=== PATIENT | male | born 1935 | race Caucasian/White ===

== ENCOUNTER → 2020-07-02 | Outpatient (CLI) | payer MEDICARE, OTHER ==
[~2020-07-02] MED LIST: ALBUTEROL SULFAT3 M3 IH; BROVANA15 MCG/2 M IH; BUDESONIDE0.5 MG/2 M IH; CALCIUM 1,0001 EACH PO; CARVEDILOL25 MG PO; CEFDINIR300 MG PO; COD LIVER OIL PO; ELIQUIS5 MG PO; FLUTICASON0.05 MG/AC NS; FUROSEMIDE40 MG PO; IPRATROPIUM BROM3 M1 IH; K-TAB20 MEQ PO; LASIX40 M1 PO; LASIX80 M1 PO; LIPITOR 40MG TA40 MG PO; LOSARTAN POTASS50 M1 PO; LOW DOSE ASPIRI81 M1 PO; NITROGLYCERIN0.4 M1 SL; ONE-DAILY MULT1 EAC1 PO; TOPROL XL 50MG50 MG PO; VITAMIN C PUR1000 MG PO; VITAMIN D3250 MCG PO; ZYRTEC ALLERGY10 MG PO
== END ==
LOC: RAD 16:15
DX: I48.91 Unspecified atrial fibrillation (principal); I08.1 Rheumatic disorders of both mitral and tricuspid valves

== ENCOUNTER → 2020-07-10 | Outpatient (CLI) | payer MEDICARE, OTHER ==
[2020-07-10 14:56] LABS: EOS # 0.2 (0.04-0.40); EOS % 1.5 % (0.0-4.0); HEMATOCRIT 46.5 % (42.0-52.0); HEMOGLOBIN 15.1 g/dL (13.5-18.0); LYMPH# 1.9 (1.50-4.00); MEAN CELL VOLUME 87 fl (78-100); MEAN CORPUSCULAR HEMOGLOBIN 28 pg (27-31); MEAN CORPUSCULAR HGB CONC 33 g/dL (33-37); MEAN PLATELET VOLUME 9.9 fl (7.4-10.4); MONO # 0.8 (0.20-0.80); NEU # 8.5 (1.40-6.50); PLATELET COUNT 243 K/mm3 (130-400); RED BLOOD COUNT 5.33 M/mm3 (4.20-5.60); RED CELL DISTRIBUTION WIDTH 14.1 % (11.5-14.5); WHITE BLOOD COUNT 11.5 K/mm3 (4.8-10.8)
[2020-07-10 15:07] LABS: POTASSIUM 4.2 mmol/L (3.5-5.1)
[2020-07-10 15:08] LABS: CALCIUM 8.9 mg/dL (8.3-10.5)
[2020-07-10 15:20] LABS: TROPONIN-I 0.04 ng/mL (<0.030)
== END ==
LOC: LAB 14:39
PROVIDERS: Family Medicine
DX: R06.02 Shortness of breath (principal)

== ENCOUNTER 2020-07-27 20:55 | Emergency (ER) | payer MEDICARE, OTHER ==
[2020-07-27 22:28] LABS: EOS # 0.2 (0.04-0.40); EOS % 2.8 % (0.0-4.0); HEMATOCRIT 46.6 % (42.0-52.0); HEMOGLOBIN 15.2 g/dL (13.5-18.0); LYMPH# 1.8 (1.50-4.00); MEAN CELL VOLUME 85 fl (78-100); MEAN CORPUSCULAR HEMOGLOBIN 28 pg (27-31); MEAN CORPUSCULAR HGB CONC 33 g/dL (33-37); MEAN PLATELET VOLUME 9.8 fl (7.4-10.4); MONO # 0.6 (0.20-0.80); NEU # 4.8 (1.40-6.50); PLATELET COUNT 283 K/mm3 (130-400); RED BLOOD COUNT 5.47 M/mm3 (4.20-5.60); RED CELL DISTRIBUTION WIDTH 14.2 % (11.5-14.5); WHITE BLOOD COUNT 7.5 K/mm3 (4.8-10.8)
[2020-07-27] MEDS ORDERED: ALBUTEROL SULFAT3 M3 IH (22:32)
[2020-07-27] MEDS ORDERED: ELIQUIS5 MG PO (22:32)
[2020-07-27] MEDS ORDERED: VITAMIN C PUR1000 MG PO (22:33)
[2020-07-27] MEDS ORDERED: BUDESONIDE0.5 MG/2 M IH (22:33)
[2020-07-27] MEDS ORDERED: BROVANA15 MCG/2 M IH (22:33)
[2020-07-27] MEDS ORDERED: CALCIUM 1,0001 EACH PO (22:34)
[2020-07-27] MEDS ORDERED: CARVEDILOL25 MG PO (22:35)
[2020-07-27] MEDS ORDERED: ZYRTEC ALLERGY10 MG PO (22:35)
[2020-07-27] MEDS ORDERED: VITAMIN D3250 MCG PO (22:35)
[2020-07-27] MEDS ORDERED: COD LIVER OIL PO (22:36)
[2020-07-27] MEDS ORDERED: FLUTICASON0.05 MG/AC NS (22:36)
[2020-07-27] MEDS ORDERED: ONE-DAILY MULT1 EAC1 PO (22:37)
[2020-07-27] MEDS ORDERED: LOSARTAN POTASS50 M1 PO (22:37)
[2020-07-27] MEDS ORDERED: NITROGLYCERIN0.4 M1 SL (22:37)
[2020-07-27] MEDS ORDERED: FUROSEMIDE40 MG PO (22:37)
[2020-07-27] MEDS ORDERED: CEFDINIR300 MG PO (22:38)
[2020-07-27 22:40] LABS: ALBUMIN 3.5 g/dL (3.4-4.8)
[2020-07-27 22:41] LABS: CALCIUM 8.9 mg/dL (8.3-10.5)
[2020-07-27 22:42] LABS: TOTAL PROTEIN 6.3 g/dL (6.2-8.1)
[2020-07-27 22:44] LABS: TOTAL BILIRUBIN 1.1 mg/dL (0.2-1.2)
[2020-07-27 22:52] LABS: PARTIAL THROMBOPLASTIN TIME 28.9 SECONDS (21.0-32.0); PROTHROMBIN TIME 12.7 SECONDS (9.0-12.0)
[2020-07-28 00:38] VITALS: BP 115/78
[2020-07-31] MEDS ORDERED: TOPROL XL 50MG50 MG PO (10:22)
[2020-07-31] MEDS ORDERED: IPRATROPIUM BROM3 M1 IH (10:23)
[2020-07-31] MEDS ORDERED: LIPITOR 40MG TA40 MG PO (10:24)
== END 2020-07-28 00:38 | disposition short-term general hospital (02) ==
LOC: ED 20:55
PROVIDERS: Nurse Practitioner
DX: I48.91 Unspecified atrial fibrillation (principal); I50.9 Heart failure, unspecified; J44.9 Chronic obstructive pulmonary disease, unspecified; Z87.891 Personal history of nicotine dependence; Z79.01 Long term (current) use of anticoagulants; Z79.51 Long term (current) use of inhaled steroids

== ENCOUNTER 2020-07-31 15:09 | Inpatient (IN) | payer MEDICARE, OTHER ==
[~2020-07-31 15:09] MED LIST changes: -K-TAB20 MEQ PO; -LASIX40 M1 PO; -LASIX80 M1 PO; -LOW DOSE ASPIRI81 M1 PO
[2020-07-31] MEDS ORDERED: LASIX40 M1 PO (15:45)
[2020-07-31 15:49] LABS: EOS # 0.2 (0.04-0.40); EOS % 2.1 % (0.0-4.0); HEMATOCRIT 45.4 % (42.0-52.0); HEMOGLOBIN 14.8 g/dL (13.5-18.0); LYMPH# 1.6 (1.50-4.00); MEAN CELL VOLUME 87 fl (78-100); MEAN CORPUSCULAR HEMOGLOBIN 28 pg (27-31); MEAN CORPUSCULAR HGB CONC 33 g/dL (33-37); MEAN PLATELET VOLUME 9.8 fl (7.4-10.4); MONO # 0.7 (0.20-0.80); NEU # 4.6 (1.40-6.50); PLATELET COUNT 270 K/mm3 (130-400); RED BLOOD COUNT 5.23 M/mm3 (4.20-5.60); RED CELL DISTRIBUTION WIDTH 14.2 % (11.5-14.5); WHITE BLOOD COUNT 7.1 K/mm3 (4.8-10.8)
[2020-07-31 16:08] LABS: ALBUMIN 3.3 g/dL (3.4-4.8); POTASSIUM 3.6 mmol/L (3.5-5.1)
[2020-07-31 16:09] LABS: CALCIUM 8.8 mg/dL (8.3-10.5)
[2020-07-31 16:10] LABS: TOTAL PROTEIN 6.3 g/dL (6.2-8.1)
[2020-07-31 16:12] LABS: TOTAL BILIRUBIN 1.3 mg/dL (0.2-1.2)
[2020-07-31 17:18] VITALS: BP 90/61
[2020-07-31 18:04] VITALS: BP 97/64
[2020-07-31 18:31] LABS: URINE APPEARANCE CLEAR; URINE BILIRUBIN NEGATIVE (NEGATIVE); URINE BLOOD NEGATIVE (NEGATIVE); URINE COLOR YELLOW; URINE GLUCOSE NEGATIVE (NEGATIVE); URINE KETONE NEGATIVE (NEGATIVE); URINE LEUKOCYTE ESTERASE 1+ (NEGATIVE); URINE NITRATE NEGATIVE (NEGATIVE); URINE PROTEIN(semi-quant) TRACE mg/dL (NEGATIVE); URINE UROBILINOGEN NORMAL (NORMAL)
[2020-07-31 18:32] LABS: URINE MUCUS PRESENT (NOT PRESENT)
[2020-08-01 05:49] VITALS: BP 100/74
[2020-08-01 17:27] VITALS: BP 95/61
[2020-08-02 06:13] VITALS: BP 102/78
[2020-08-02 17:19] VITALS: BP 87/57
[2020-08-03 05:47] VITALS: BP 100/69
[2020-08-03 12:00] VITALS: BP 83/61
[2020-08-03 12:05] VITALS: BP 84/58
[2020-08-03 17:06] VITALS: BP 95/65
[2020-08-04 05:25] VITALS: BP 80/55
[2020-08-04 08:15] VITALS: BP 94/71
[2020-08-04 09:20] LABS: EOS # 0.1 (0.04-0.40); EOS % 1.5 % (0.0-4.0); HEMATOCRIT 47.2 % (42.0-52.0); HEMOGLOBIN 15.2 g/dL (13.5-18.0); LYMPH# 2.2 (1.50-4.00); MEAN CELL VOLUME 87 fl (78-100); MEAN CORPUSCULAR HEMOGLOBIN 28 pg (27-31); MEAN CORPUSCULAR HGB CONC 32 g/dL (33-37); MEAN PLATELET VOLUME 10.4 fl (7.4-10.4); MONO # 0.6 (0.20-0.80); NEU # 5.2 (1.40-6.50); PLATELET COUNT 257 K/mm3 (130-400); RED BLOOD COUNT 5.43 M/mm3 (4.20-5.60); RED CELL DISTRIBUTION WIDTH 14.2 % (11.5-14.5); WHITE BLOOD COUNT 8.1 K/mm3 (4.8-10.8)
[2020-08-04 09:28] LABS: POTASSIUM 4.1 mmol/L (3.5-5.1)
[2020-08-04 09:29] LABS: CALCIUM 9.3 mg/dL (8.3-10.5)
[2020-08-04 10:43] LABS: TROPONIN-I 0.04 ng/mL (<0.030)
[2020-08-04 12:47] VITALS: BP 95/66
[2020-08-04 15:42] VITALS: BP 89/62
[2020-08-04 17:37] VITALS: BP 92/67
[2020-08-04 20:14] VITALS: BP 98/66
[2020-08-05 05:58] VITALS: BP 86/63
[2020-08-05 08:32] VITALS: BP 97/65
[2020-08-05 12:10] VITALS: BP 119/83
[2020-08-05 17:03] VITALS: BP 93/66
[2020-08-06 05:52] VITALS: BP 116/80
[2020-08-06 12:15] VITALS: BP 101/72
[2020-08-06 17:38] VITALS: BP 95/69
[2020-08-07 05:56] VITALS: BP 102/68
[2020-08-07 17:10] VITALS: BP 96/69
[2020-08-08 05:51] VITALS: BP 107/72
[2020-08-08 10:02] VITALS: BP 114/75
[2020-08-08 17:12] VITALS: BP 104/69
[2020-08-09 05:50] VITALS: BP 92/63
[2020-08-09 09:27] VITALS: BP 99/75
[2020-08-09 16:32] VITALS: BP 11/70; BP 111/70
[2020-08-10 05:37] VITALS: BP 116/74
[2020-08-10 17:01] VITALS: BP 87/66
[2020-08-11 05:55] VITALS: BP 88/57
[2020-08-11 07:45] LABS: POTASSIUM 3.4 mmol/L (3.5-5.1)
[2020-08-11 07:46] LABS: CALCIUM 8.8 mg/dL (8.3-10.5)
[2020-08-11 08:30] VITALS: BP 105/69
[2020-08-11 17:20] VITALS: BP 94/66
[2020-08-12 06:09] VITALS: BP 107/74
[2020-08-12 17:51] VITALS: BP 102/71
[2020-08-12 21:09] VITALS: BP 107/78
[2020-08-12 21:42] VITALS: BP 102/65
[2020-08-13 05:44] VITALS: BP 102/67
[2020-08-13 10:29] VITALS: BP 104/64
[2020-08-13 17:20] VITALS: BP 92/68
[2020-08-14 02:00] VITALS: BP 101/65
[2020-08-14 03:55] LABS: EOS # 0.1 (0.04-0.40); EOS % 1.7 % (0.0-4.0); HEMATOCRIT 41.4 % (42.0-52.0); HEMOGLOBIN 13.3 g/dL (13.5-18.0); LYMPH# 1.2 (1.50-4.00); MEAN CELL VOLUME 89 fl (78-100); MEAN CORPUSCULAR HEMOGLOBIN 29 pg (27-31); MEAN CORPUSCULAR HGB CONC 32 g/dL (33-37); MEAN PLATELET VOLUME 10.6 fl (7.4-10.4); MONO # 0.7 (0.20-0.80); NEU # 5.1 (1.40-6.50); PLATELET COUNT 219 K/mm3 (130-400); RED BLOOD COUNT 4.67 M/mm3 (4.20-5.60); RED CELL DISTRIBUTION WIDTH 14.2 % (11.5-14.5); WHITE BLOOD COUNT 7.1 K/mm3 (4.8-10.8)
[2020-08-14 03:56] LABS: POTASSIUM 3.6 mmol/L (3.5-5.1); SODIUM 135 mmol/L (136-145)
[2020-08-14 03:57] LABS: CALCIUM 9.3 mg/dL (8.3-10.5)
[2020-08-14 03:58] LABS: GLUCOSE 112 mg/dL (75-110)
[2020-08-14 03:59] LABS: CARBON DIOXIDE 30 mmol/L (23-31)
[2020-08-14 04:25] LABS: TROPONIN-I < 0.03 ng/mL (<0.030)
== END 2020-08-14 12:03 | disposition short-term general hospital (02) | DRG 948 ==
LOC: MED/SURG 15:09
PROVIDERS: Nurse Practitioner Family; ADMIT Nurse Practitioner Primary Care
DX: R53.81 Other malaise (principal); I42.9 Cardiomyopathy, unspecified; J44.9 Chronic obstructive pulmonary disease, unspecified; I48.91 Unspecified atrial fibrillation; I95.9 Hypotension, unspecified; I11.0 Hypertensive heart disease with heart failure; I25.10 Atherosclerotic heart disease of native coronary artery without angina pectoris; E87.6 Hypokalemia; R63.0 Anorexia; E78.5 Hyperlipidemia, unspecified; Z68.27 Body mass index [BMI] 27.0-27.9, adult; Z79.01 Long term (current) use of anticoagulants; Z87.891 Personal history of nicotine dependence
CPT/HCPCS: J1940

== ENCOUNTER 2020-08-24 11:55 | Inpatient (IN) | payer MEDICARE, OTHER ==
[~2020-08-24 11:55] MED LIST changes: +LASIX40 M1 PO
[2020-08-24] MEDS ORDERED: LOW DOSE ASPIRI81 M1 PO (13:48)
[2020-08-24] MEDS ORDERED: LASIX80 M1 PO (14:16)
[2020-08-24] MEDS ORDERED: K-TAB20 MEQ PO (14:16)
[2020-08-24 14:30] VITALS: BP 97/60
[2020-08-24 17:57] LABS: EOS # 0.1 (0.04-0.40); EOS % 2.2 % (0.0-4.0); HEMATOCRIT 40.9 % (42.0-52.0); HEMOGLOBIN 13.1 g/dL (13.5-18.0); MEAN CELL VOLUME 88 fl (78-100); MEAN CORPUSCULAR HEMOGLOBIN 28 pg (27-31); MEAN CORPUSCULAR HGB CONC 32 g/dL (33-37); MEAN PLATELET VOLUME 10.3 fl (7.4-10.4); MONO # 0.6 (0.20-0.80); NEU # 4.3 (1.40-6.50); PLATELET COUNT 179 K/mm3 (130-400); RED BLOOD COUNT 4.65 M/mm3 (4.20-5.60); RED CELL DISTRIBUTION WIDTH 14.2 % (11.5-14.5)
[2020-08-24 18:20] LABS: ALBUMIN 3.3 g/dL (3.4-4.8); POTASSIUM 4.3 mmol/L (3.5-5.1)
[2020-08-24 18:21] LABS: CALCIUM 9.2 mg/dL (8.3-10.5)
[2020-08-24 18:22] LABS: TOTAL PROTEIN 6.1 g/dL (6.2-8.1)
[2020-08-24 18:24] LABS: TOTAL BILIRUBIN 1.8 mg/dL (0.2-1.2)
[2020-08-24 20:18] LABS: URINE APPEARANCE HAZY; URINE COLOR YELLOW
[2020-08-24 20:19] LABS: PH-URINE 6.5 (5.0 - 8.0); URINE BILIRUBIN NEGATIVE (NEGATIVE); URINE BLOOD 50 ery/uL (NEGATIVE); URINE GLUCOSE NEGATIVE (NEGATIVE); URINE KETONE NEGATIVE (NEGATIVE); URINE LEUKOCYTE ESTERASE 2+ (NEGATIVE); URINE NITRATE POSITIVE (NEGATIVE); URINE PROTEIN(semi-quant) NEGATIVE (NEGATIVE); URINE UROBILINOGEN NORMAL (NORMAL); URINE WBC 31-50 /hpf (0-3)
[2020-08-25 05:56] VITALS: BP 122/87
[2020-08-25 16:04] VITALS: BP 106/73
[2020-08-26 06:01] VITALS: BP 93/60
[2020-08-26 17:08] VITALS: BP 104/69
[2020-08-27 06:18] VITALS: BP 104/66
[2020-08-27 17:00] VITALS: BP 97/65
[2020-08-28 05:58] VITALS: BP 102/74
[2020-08-28 17:50] VITALS: BP 99/66
[2020-08-29 05:53] VITALS: BP 105/69
[2020-08-29 17:29] VITALS: BP 91/59
[2020-08-30 06:10] VITALS: BP 110/74
[2020-08-30 17:25] VITALS: BP 103/70
[2020-08-31 06:13] VITALS: BP 109/76; BP 110/62
[2020-08-31 17:09] VITALS: BP 100/67
[2020-09-01 06:02] VITALS: BP 108/76
== END 2020-09-01 14:54 | disposition home health service (06) | DRG 308 ==
LOC: MED/SURG 11:55
PROVIDERS: ADMIT Nurse Practitioner
DX: I48.91 Unspecified atrial fibrillation (principal); I50.23 Acute on chronic systolic (congestive) heart failure; N39.0 Urinary tract infection, site not specified; I11.0 Hypertensive heart disease with heart failure; I25.10 Atherosclerotic heart disease of native coronary artery without angina pectoris; J44.9 Chronic obstructive pulmonary disease, unspecified; E78.5 Hyperlipidemia, unspecified; R53.81 Other malaise; Z79.01 Long term (current) use of anticoagulants; Z95.0 Presence of cardiac pacemaker; Z87.891 Personal history of nicotine dependence

== ENCOUNTER → 2021-02-10 | Outpatient (CLI) | payer MEDICARE, OTHER ==
[~2021-02-10] MED LIST changes: +K-TAB20 MEQ PO; +LASIX80 M1 PO; +LOW DOSE ASPIRI81 M1 PO
== END ==
LOC: RAD 02-05 13:00 → VAS 12:46 → RAD 13:00
DX: I50.22 Chronic systolic (congestive) heart failure (principal)

== ENCOUNTER 2023-11-03 18:37 | Emergency (ER) | payer MEDICARE, OTHER ==
[2023-11-03] MEDS ORDERED: NS 1,000 ML IV SCH (19:15)
[2023-11-03 19:30] LABS: BASO # 0.01 K/mm3 (0.02-0.10); EOS # 0.01 K/mm3 (0.04-0.40); EOS % 0.1 % (0.0-4.0); HEMATOCRIT 49.2 % (42.0-52.0); LYMPH# 0.83 K/mm3 (1.50-4.00); MEAN CELL VOLUME 85 fl (78-100); MEAN CORPUSCULAR HEMOGLOBIN 28 pg (27-31); MEAN CORPUSCULAR HGB CONC 33 g/dL (33-37); MEAN PLATELET VOLUME 9.5 fl (7.4-10.4); MONO # 1.24 K/mm3 (0.20-0.80); NEU # 10.47 K/mm3 (1.40-6.50); PLATELET COUNT 220 K/mm3 (130-400); RED BLOOD COUNT 5.78 M/mm3 (4.20-5.60); RED CELL DISTRIBUTION WIDTH 14.3 % (11.5-14.5); WHITE BLOOD COUNT 12.6 K/mm3 (4.8-10.8)
[2023-11-03 19:34] LABS: URINE APPEARANCE CLOUDY (CLEAR); URINE COLOR YELLOW (YELLOW)
[2023-11-03 19:37] LABS: ALBUMIN 3.9 g/dL (3.4-4.8)
[2023-11-03 19:38] LABS: PH-URINE 5.5 (5.0 - 8.0); URINE BILIRUBIN NEGATIVE (NEGATIVE); URINE BLOOD 2+ (NEGATIVE); URINE GLUCOSE 3+ (NEGATIVE); URINE KETONE NEGATIVE (NEGATIVE); URINE LEUKOCYTE ESTERASE 3+ (NEGATIVE); URINE NITRATE NEGATIVE (NEGATIVE); URINE PROTEIN(semi-quant) 1+ (NEGATIVE)
[2023-11-03 19:39] LABS: CALCIUM 9.9 mg/dL (8.3-10.5)
[2023-11-03 19:39] LABS: URINE WBC >50 /hpf (0-3)
[2023-11-03 19:40] LABS: TOTAL PROTEIN 7.1 g/dL (6.2-8.1)
[2023-11-03 19:42] LABS: TOTAL BILIRUBIN 2.2 mg/dL (0.2-1.2)
[2023-11-03] MEDS ORDERED: cefTRIAXone 1 G in Water For Injection,Sterile 10 ML IV ONE (20:15)
[2023-11-03] MEDS ORDERED: CEPHALEXIN500 M1 PO (22:06)
[2023-11-03] MEDS ORDERED: FLOMAX0.4 MG PO (22:07)
[2023-11-03 23:10] VITALS: BP 125/79
[2023-11-06] MEDS ORDERED: CIPRO500 M1 PO (18:44)
== END 2023-11-03 23:10 | disposition home or self-care (01) ==
LOC: ED 18:37
PROVIDERS: Nurse Practitioner
DX: N39.0 Urinary tract infection, site not specified (principal); R53.1 Weakness

== ENCOUNTER 2023-12-05 08:07 | Emergency (ER) | payer MEDICARE, OTHER ==
[~2023-12-05] VITALS: Ht 185.4 cm; Wt 91.0 kg
[~2023-12-05 08:07] MED LIST changes: +CEPHALEXIN500 M1 PO; +CIPRO500 M1 PO; +FLOMAX0.4 MG PO
[2023-12-05 09:11] LABS: BASO # 0.01 K/mm3 (0.02-0.10); EOS # 0.01 K/mm3 (0.04-0.40); EOS % 0.1 % (0.0-4.0); HEMATOCRIT 45.7 % (42.0-52.0); HEMOGLOBIN 15.2 g/dL (13.5-18.0); LYMPH# 0.95 K/mm3 (1.50-4.00); MEAN CELL VOLUME 84 fl (78-100); MEAN CORPUSCULAR HEMOGLOBIN 28 pg (27-31); MEAN CORPUSCULAR HGB CONC 33 g/dL (33-37); MEAN PLATELET VOLUME 10.5 fl (7.4-10.4); MONO # 1.04 K/mm3 (0.20-0.80); NEU # 8.61 K/mm3 (1.40-6.50); PLATELET COUNT 172 K/mm3 (130-400); RED BLOOD COUNT 5.46 M/mm3 (4.20-5.60); RED CELL DISTRIBUTION WIDTH 14.6 % (11.5-14.5); WHITE BLOOD COUNT 10.7 K/mm3 (4.8-10.8)
[2023-12-05 09:15] LABS: ALBUMIN 3.2 g/dL (3.4-4.8)
[2023-12-05 09:16] LABS: CALCIUM 9.5 mg/dL (8.3-10.5)
[2023-12-05 09:17] LABS: TOTAL PROTEIN 6.3 g/dL (6.2-8.1)
[2023-12-05 09:19] LABS: TOTAL BILIRUBIN 1.6 mg/dL (0.2-1.2)
[2023-12-05 09:20] LABS: PH-URINE 7.5 (5.0 - 8.0); URINE APPEARANCE SLIGHTLY CLOUDY (CLEAR); URINE COLOR YELLOW (YELLOW); URINE GLUCOSE 2+ (NEGATIVE); URINE PROTEIN(semi-quant) 2+ (NEGATIVE)
[2023-12-05 09:21] LABS: URINE BILIRUBIN 1+ (NEGATIVE); URINE BLOOD 3+ (NEGATIVE); URINE KETONE NEGATIVE (NEGATIVE); URINE LEUKOCYTE ESTERASE TRACE (NEGATIVE); URINE MUCUS PRESENT (NOT PRESENT); URINE NITRATE NEGATIVE (NEGATIVE); URINE WBC >50 /hpf (0-3)
[2023-12-05] MEDS ORDERED: cefTRIAXone 1 G in Water For Injection,Sterile 10 ML IV ONE (09:45)
[2023-12-05] MEDS ORDERED: NS 500 ML IV SCH (09:45)
[2023-12-05 10:30] VITALS: BP 98/71
== END 2023-12-05 10:56 | disposition short-term general hospital (02) ==
LOC: ED 08:07
PROVIDERS: Physician Assistant
DX: N39.0 Urinary tract infection, site not specified (principal); N17.9 Acute kidney failure, unspecified; E87.1 Hypo-osmolality and hyponatremia
CPT/HCPCS: J0696; J7040

== ENCOUNTER 2024-01-18 10:48 | Emergency (ER) | payer MEDICARE, OTHER ==
[~2024-01-18] VITALS: Ht 185.4 cm; Wt 9099.5 kg
[2024-01-18 11:44] VITALS: BP 128/72
[2024-01-18 13:38] LABS: URINE APPEARANCE CLOUDY (CLEAR); URINE COLOR YELLOW (YELLOW)
[2024-01-18 13:39] LABS: URINE BILIRUBIN NEGATIVE (NEGATIVE); URINE BLOOD 2+ (NEGATIVE); URINE GLUCOSE NEGATIVE (NEGATIVE); URINE KETONE NEGATIVE (NEGATIVE); URINE LEUKOCYTE ESTERASE 3+ (NEGATIVE); URINE MUCUS PRESENT (NOT PRESENT); URINE NITRATE NEGATIVE (NEGATIVE); URINE PROTEIN(semi-quant) 2+ (NEGATIVE)
== END 2024-01-18 11:45 | disposition home or self-care (01) ==
LOC: ED 10:48
PROVIDERS: Nurse Practitioner
DX: N99.89 Other postprocedural complications and disorders of genitourinary system (principal); Z90.79 Acquired absence of other genital organ(s)
CPT/HCPCS: A4314

== ENCOUNTER 2024-04-30 12:21 | Emergency (ER) | payer MEDICARE, OTHER ==
[~2024-04-30] VITALS: Ht 185.4 cm; Wt 91.0 kg
[2024-04-30 12:29] VITALS: BP 121/91
== END 2024-04-30 13:43 | disposition home or self-care (01) ==
LOC: ED 12:21
DX: J06.9 Acute upper respiratory infection, unspecified (principal); Z87.891 Personal history of nicotine dependence

== ENCOUNTER → 2024-06-07 | Outpatient (CLI) | payer MEDICARE, OTHER ==
[~2024-06-07] VITALS: Ht 182.9 cm; Wt 94.2 kg
[~2024-06-07] MED LIST changes: +ALDACTONE 25MG25 MG PO; +ARICEPT10 M1 PO; +LOSARTAN POTASS25 MG PO; +METOPROLOL SUCC25 M1 PO; +POTASSIUM CHLO20 ME4 PO
== END ==
LOC: AMSURD 14:02
DX: R33.9 Retention of urine, unspecified (principal)
CPT/HCPCS: A4340